=== PATIENT | male | born 1985 | race Caucasian/White ===

== ENCOUNTER 2022-07-21 20:33 | Inpatient (IN) | payer OTHER, SELFPAY ==
--- NOTE | ~2022-07-21 | XR_ITS ---
EXAMINATION: XR CHEST CLINICAL INFORMATION: Cough x1 week. Leukocytosis. COMPARISON: None available. TECHNIQUE: Frontal view of the chest was obtained. FINDINGS: No significant abnormality is noted involving the heart, lungs, mediastinum, bony thorax or soft tissues. XR/XR chest 1V IMPRESSION: Unremarkable chest examination.
[2022-07-21 21:10] VITALS: BP 151/90; PULSE 91; RESP 18; TEMP 36.9; O2SAT 96
--- NOTE | 2022-07-21 22:27 | PC.ADMIT ---
Christian Botello is a 36-year-old who is being seen by [facility] due to suicidal and homicidal ideation. He presented with paranoid thinking that his fianc? is ?out to get him?. He believes his fianc? is using the children against him, making tic emi videos to ?turn everyone against him? and is cheating on him with another man. During assessment he was unable to fully participate, perseverating on his belief that ?everyone is out to get him? and his finance is recording and posting videos from ?intimate activities?. He was unable to answer direct questions and required constant redirection, he continued to repeat the same story over again. He denies SI/HI, or auditory and visual hallucinations. He states having a safe place to discharge to, without being able to provide details. Per collateral with his mother he has access to firearms. On arrival to , patient signed in CV. Patient stated he was tired and wanted to rest. Patient given a snack and was shown around the unit and then went to his room. Nurse gave patient admission information and patient signed form. Patient allowed to sleep. Patient did report that he actively uses cocaine,fentynal, heroin, and marijuana and will most likely need medications to help with withdrawal on 07/22/22. last use was 0400 on 07/20/22. Patient denied active SI/HI or AH/VH. According to [facility] assessment, patient is paranoid and labile.
[2022-07-22] MEDS: hydrOXYzine HCL 25 MG TABLET PO (05:07)
[2022-07-22 08:40] VITALS: BP 160/96; PULSE 76; RESP 18; TEMP 36.7; O2SAT 96
[2022-07-22] MEDS: cloNIDine HCL 0.1 MG TABLET PO ×2 (09:12→14:26)
[2022-07-22 09:22] LABS: Alanine Aminotransferase 16 U/L (0-40); Albumin Level 4.3 g/dL (3.5-5.0); Alkaline Phosphatase 86 U/L (39-117); Anion Gap 12 (12-20); Aspartate Amino Transferase 14 U/L (5-37); Bilirubin Total 0.8 mg/dL (0.0-1.0); Blood Urea Nitrogen 8 mg/dL (9-16); Calcium 9.3 mg/dL (8.4-10.2); Carbon Dioxide 26 mmol/L (22-29); Chloride 106 mmol/L (96-108); Cholesterol 179 mg/dL; Estimated Glomerular Filt Rate > 60; Glucose Fasting 108 mg/dL (60-99); HDL Cholesterol 52 mg/dL; LDL Cholesterol Calculated 114 mg/dl; Potassium 4.2 mmol/L (3.3-5.1); Sodium 140 mmol/L (135-145); Triglycerides 68 mg/dL
--- NOTE | 2022-07-22 09:53 | HO.PSYADMNOT ---
HPI Date of Service: 07/22/22 Chief Complaint: F 31.9 F12.20 F11.20 Sources of Information: patient interviewed, chart reviewed and crisis/core team assessment reviewed HPI Subjective Notes: [place] Warning (given and shows understanding) and Conditional Voluntary Narrative: Mr. Botello is a 36 year-old male with a hx of cocaine, opioid use disorder and psychosis who was brought to [facility] ED on sect 12 a by police after father called 911 reporting pt presented as paranoid, accusing fiance of posting videos on tic emi about him and parents being involved as well. Pt made threats to shoot fiance and himself. In the ED, utox was positive for cocaine, oxycodone. On the unit, pt presents as cooperative. He reports fiance is making videos and random people on the streets or stores he goes to are talking about him. He reports that I know, sounds crazy, but is true! Pt reports long hx of substance use but opioid use for last 3 years ago. Pt reports some months of sobriety last year and earlier this year and even then he was preoccupied with ideas of fiance conspiring against him. He denies auditory or visual hallucinations. He reports fair sleep. He denies any intent to harm himself or his fiance and reports he was very upset and frustrated about what he believes she is doing to him. He still believes she is posting videos about him, which he states when he shows to others, they can't see they connection with him. He reports his daughter knew that he was not supposed to know. However, daughter is only 2 years old. Past Psychiatric History: Inpt: 2019 APTU OP: none Past medication trials: seroquel Medical Evaluation Reviewed: Yes Diagnostics Vital Signs (24Hr): Vital Signs - 24 hr 07/21/22 21:10 Temperature 98.4 F Pulse Rate 91 Respiratory Rate 18 Blood Pressure 151/90 H Pulse Oximetry 96 Oxygen Delivery Method Room Air Labs 07/22/22 08:42 Labs: Laboratory Results - last 48 hr 07/22/22 08:42 Sodium 140 Potassium 4.2 Chloride 106 Carbon Dioxide 26 Anion Gap 12 BUN 8 L Creatinine 0.85 Estim Creat Clear Calc TNP Estimated GFR > 60 Fasting Glucose 108 H Calcium 9.3 Total Bilirubin 0.8 AST 14 ALT 16 Alkaline Phosphatase 86 Total Protein 7.0 Albumin 4.3 Triglycerides 68 Cholesterol 179 LDL Cholesterol, Calc 114 HDL Cholesterol 52 Meds/Allergies Meds Home Medications Medication Instructions Recorded Confirmed Type No Known Home Meds 07/21/22 07/21/22 History Allergies Allergies Allergy/AdvReac Type Severity Reaction Status Date / Time No Known Allergies Allergy Verified 07/21/22 21:15 Mental Status Exam Mental Status Exam Narrative: Appearance: casually groomed, fair hygiene, in NAD behavior: cooperative Psychomotor: no agitation or retardation noted Speech: clear, normal rate/rhythm, spontaneous TP: mostly linear TC: delusions of fiance posting videos of him and random people talking about him, reports even in the hospital staff were involved and knew about fiance videos. Mood: upset Affect: congruent SI: denies HI: denies, but does state, something should happen to her for doing what she is doing Delusions: paranoid delusions Insight/judgment: poor x 2. Memory/cog: alert, oriented x 3. not situation. Assessment & Plan Assessment & Plan (1) Psychosis: Status: Acute Code(s): F29 - Unspecified psychosis not due to a substance or known physiological condition (2) Cocaine use disorder, moderate, dependence: Status: Acute Code(s): F14.20 - Cocaine dependence, uncomplicated (3) Opioid use disorder, moderate, dependence: Status: Acute Code(s): F11.20 - Opioid dependence, uncomplicated Plan Mr. Botello is a 36 year-old male with hx of substance use, psychosis who was brought on sect 12 by police after father called reporting pt threatening to shoot his fiance and then himself in context of paranoid delusions. On the unit, pt presented with paranoia stating that people, even strangers and others in the hospital were talking about him. His utox positive for oxycodone, cocaine, cannabis. Pt reports periods of sobriety earlier this year when he was experiencing paranoia. We discussed risks, benefits and alternative treatment options. Start COWS opioid withdrawal protocol. Start risperidone 1mg po BID for delusions. PLAN 1. admit to M3, CV, 15 minutes checks for safety 2. Opioid withdrawal- COWS protocol with methadone taper 3. start risperidone 1mg po BID 4. Obtain collateral information 5. aftercare planning Patient educated on: diagnosis and medication risk/benefits Reason for continued inpatient stay Substantial Risk for: harm to self, harm to others and inability to function Statement Statement: I have reviewed the history and physical and performed a pertinent examination on my patient. No changes have occurred unless specified. If the History and Physical was not performed prior to admission, the Hospitalist's service will be consulted for completing the admission physical. Time Spent With Patient Time: Total time managing care of this patient today ____ minutes.
--- NOTE | 2022-07-22 11:20 | HO.PM.IMCN ---
History of Present Illness Data of Consult Service Date: 07/22/22 Primary Care Provider: Unknown Physician HPI Reason for consult: Admission H&P Pt is a 36-year-old male with a PMH significant for opioid and cocaine use disorder who is admitted to M3 psychiatry unit for increasing depression and paranoia with SI towards self and HI towards fiancee. Medical consult for admission H&P. ?Patient complains an occasionally productive cough he has been experiencing for the past week to 10 days. Patient states his whole family had similar symptoms. Patient denies taking anything for his cough. Patient has long history of polysubstance abuse with last use of heroin and cocaine 2-3 days ago. Patient otherwise has no acute medical complaints. Denies fever, chills, nausea, vomiting, diarrhea, abdominal pain. No headache, changes in vision. Denies sore throat, difficulty breathing/SOB. Denies chest pains/pressure, palpitations. Review of Systems Review of Systems: Occasionally productive cough x7-10 days Denies shortness of breath, headache, fever, chills, myalgias No chest pain/pressure, palpitations Denies nausea, vomiting, diarrhea, abdominal pain Yes all other systems are reviewed and are negative PMFSH Social History Household Members: Significant Other and Children Housing: Apartment Do you presently have visiting nurse or other home services: No Patient Tobacco Use Status: Tobacco use Unknown Use of substances other than those prescribed or required for medical reasons: Yes Substance Use Type: Crack/Cocaine, Heroin and Marijuana Substance Use Frequency: Daily Last Used Substance: Just Prior to Admission Currently Displaying Signs/Symptoms of Drug Intoxication Withdrawal: No Any prior treatment program specific to substance use: Yes (1 year ago on [place]) Do you feel safe in your current relationship?: Yes Is there a partner from a previous relationship who is making you feel unsafe now?: No Are you made to feel afraid or neglected: No Spiritual Healthcare Practices: none reported Latter-Day Healthcare Practices: none reported Cultural Healthcare Practices: none reported Advance Directives: No Advance Directives Information Provided: No Do you have thoughts of harming others: Vague Do you have a plan to hurt others: No Plan Recently lost weight without trying: Unsure How much weight loss: Unsure Eating poorly because of decreased appetite: No Nutrition screen score: 4 Nutrition Risks: No Nutritional Risk Poor oral hygiene: No service: No Sexual orientation: Straight/Heterosexual Meds Allergies Allergy/AdvReac Type Severity Reaction Status Date / Time No Known Allergies Allergy Verified 07/21/22 21:15 Active Medications: Current Medications Acetaminophen (Acetaminophen 325 Mg Tablet) 650 mg PO Q6H PRN PRN Reason: Headache/Pain Mild Scale (1-3) Al Hydroxide/Mg Hydroxide (Magnesium Hydrox/Alum Hydrox 30 Ml Oral.Susp) 30 ml PO Q6H PRN PRN Reason: Heartburn/Nausea Clonidine HCl (Clonidine Hcl 0.1 Mg Tablet) 0.1 mg PO Q2H PRN; Protocol PRN Reason: SBP > 150; Sx of opioid withdrawal Last Admin: 07/22/22 09:12 Dose: 0.1 mg Dicyclomine HCl (Dicyclomine Hcl 10 Mg Capsule) 10 mg PO QIDACHS PRN PRN Reason: cramps Hydroxyzine HCl (Hydroxyzine Hcl 25 Mg Tablet) 25 mg PO Q6H PRN PRN Reason: Anxiety Last Admin: 07/22/22 05:07 Dose: 25 mg Ibuprofen (Ibuprofen 800 Mg Tablet) 800 mg PO Q6H PRN PRN Reason: aches Magnesium Hydroxide (Milk Of Magnesia 30 Ml Oral.Susp) 30 ml PO DAILY PRN PRN Reason: Constipation Trazodone HCl (Trazodone Hcl 50 Mg Tablet) 50 mg PO BEDTIME MRX1 PRN PRN Reason: Insomnia Home Medications Medication Instructions Recorded Confirmed Last Taken Type No Known Home Meds 07/21/22 07/21/22 Unknown History Physical Exam Vital Signs and Narrative: Vital Signs: Last Vital Signs Temp 98.1 F 07/22/22 08:40 Pulse 76 07/22/22 08:40 Resp 18 07/22/22 08:40 BP 160/96 H 07/22/22 08:40 Pulse Ox 96 07/22/22 08:40 O2 Del Method Room Air 07/22/22 08:40 Constitutional: Alert, in no acute distress. Mental Status: Oriented to person, place and time. Eyes: Pupils are equal, round, and reactive to light. Ear, Nose, and Throat: Oropharynx clear, mucous membranes moist. Ears and nose without deformities. Trachea midline. Respiratory: Clear to auscultation bilaterally. No wheezing, rales, or rhonchi. Occasional wet-sounding cogh noted. Cardiovascular: S1, S2 regular. No murmurs, rubs, or gallops. Gastrointestinal: Abdomen soft, non-tender, non-distended. Normal bowel sounds. Neurologic: Cranial nerves II-XII are grossly intact bilaterally. No focal neurological deficits. Moves all extremities spontaneously. Skin: No rashes or lesions noted. Musculoskeletal: No cyanosis or clubbing. Extremities: No edema. Psychiatric: Normal mood and affect. Results Labs 07/22/22 08:42 Labs: Laboratory Results - last 24 hr 07/22/22 08:42 Anion Gap 12 Estim Creat Clear Calc TNP Estimated GFR > 60 Fasting Glucose 108 H Calcium 9.3 Total Bilirubin 0.8 AST 14 ALT 16 Alkaline Phosphatase 86 Total Protein 7.0 Albumin 4.3 Triglycerides 68 Cholesterol 179 LDL Cholesterol, Calc 114 HDL Cholesterol 52 Assessment and Plan (1) Routine history and physical examination of adult: Status: Acute Plan Pt is a 36-year-old male with a PMH significant for opioid and cocaine use disorder who is admitted to psychiatry unit for increasing depression and paranoia with SI towards self and HI towards fiancee. Medical consult for admission H&P. Mood disorder Plan as per Psychiatry Cough Patient with cough x7-10 days, with known sick contacts with similar symptoms Lab work at [facility] showed leukocytosis of 15.1 Will repeat CBC Will get chest x-ray to rule out pneumonia Will check respiratory viral panel Benzonatate for cough Thank you for allowing us to participate in the care of this patient. Will continue to follow pending lab and x-ray results. Please let us know if there are any acute complaints or questions. Time Spent With Patient Time: Total time managing care of this patient today ____ minutes.
[2022-07-22 13:03] LABS: Hematocrit 43.1 % (42.0-52.0); Hemoglobin 14.7 g/dl (14.0-18.0); Mean Corpuscular HGB Conc 34.1 g/dl (31.0-36.0); Mean Platelet Volume 8.9 fL (9.4-12.4); Platelet Count 336 X10*3/uL (160-400); Red Cell Distribution Width 13.2 % (11.0-16.0); White Blood Count 11.5 X10*3/uL (4.8-10.8)
[2022-07-22 14:46] LABS: Adenovirus PCR Not Detected (Not Detect.); Bordetella parapertussis PCR Not Detected (Not Detect.); Bordetella pertussis PCR Not Detected (Not Detect.); Chlamydia pneumoniae PCR Not Detected (Not Detect.); Coronavirus 229E PCR Not Detected (Not Detect.); Coronavirus HKU1 PCR Not Detected (Not Detect.); Coronavirus NL63 PCR Not Detected (Not Detect.); Coronavirus OC43 PCR Not Detected (Not Detect.); Human metapneumovirus PCR Not Detected (Not Detect.); Influenza A PCR Not Detected (Not Detect.); Influenza B PCR Not Detected (Not Detect.); Mycoplasma pneumoniae PCR Not Detected (Not Detect.); Parainfluenza 1 PCR Not Detected (Not Detect.); Parainfluenza 2 PCR Not Detected (Not Detect.); Parainfluenza 3 PCR Not Detected (Not Detect.); Parainfluenza 4 PCR Not Detected (Not Detect.); RSV PCR Not Detected (Not Detect.); Rhino/Enterovirus PCR Not Detected (Not Detect.); SARS-CoV-2 PCR Not Detected (Not Detect.)
[2022-07-22] MEDS: risperiDONE 1 MG TABLET PO ×2 (16:49→21:24)
[2022-07-22] MEDS: methADONE HCl 20 MG/2 ML ORAL.CONC PO (16:49)
[2022-07-22 20:00] VITALS: BP 145/70; PULSE 90; RESP 16; TEMP 36.5; O2SAT 97
--- NOTE | 2022-07-22 22:53 | PC.NURSE ---
Christian is admitted to his first [facility] for safety, observation and stabilization, diagnosis MDD and substance use disorder. He is noted to be in bed during the shift, limited engagement in 1:1, he is isolating and withdrawn. Stated I feel better. med adherent with scheduled HS meds, independent with ADL', afebrile, no cough or congestion noted or reported to TW, CXRAY results pending Radiologist review, appears to be clear. Christian was noticed to be up once during the shift to use the phone. Denies current SI/HI/AVH. Ate some of his dinner, COWS due Q6 hrs WA. No behavior issues. POC as outlined, 15 min unit safety observation.
[2022-07-23] MEDS: traZODone HCL 50 MG TABLET PO ×2 (00:31→21:08)
[2022-07-23] MEDS: Cyclobenzaprine HCl 10 MG TABLET PO ×2 (00:31→21:08)
[2022-07-23 08:15] VITALS: BP 155/80; PULSE 60; RESP 18; TEMP 36.6; O2SAT 97
--- NOTE | 2022-07-23 09:23 | HO.PSYCHPN ---
Subjective Subjective Date of Service: 07/22/22 Reason For Visit: F 31.9 F12.20 F11.20 Subjective Notes: Conditional Voluntary Interim History: Pt reports having symptoms of opioid withdrawal including loose stools, muscle aches, sweating. He did received methadone 20mg po yesterday. He wants to continue taper. Today he received another methadone 20mg po, then will decrease by 5mg po daily. He continues to present with paranoid delusions. No SI/HI. Mostly in bed. Per nursing, pt slept through the night. Medication Compliance: Yes Review of Systems Review of Systems Occasionally productive cough x7-10 days Denies shortness of breath, headache, fever, chills, myalgias No chest pain/pressure, palpitations Denies nausea, vomiting, diarrhea, abdominal pain Yes all other systems are reviewed and are negative Mental Status Exam Mental Status Exam Narrative: Appearance: casually groomed, fair hygiene, in NAD behavior: cooperative Psychomotor: no agitation or retardation noted Speech: clear, normal rate/rhythm, spontaneous TP: mostly linear TC: delusions of fiance posting videos of him and random people talking about him, reports even in the hospital staff were involved and knew about fiance videos. Mood: upset Affect: congruent SI: denies HI: denies, but does state, something should happen to her for doing what she is doing Delusions: paranoid delusions Insight/judgment: poor x 2. Memory/cog: alert, oriented x 3. not situation. Diagnostics Vital Signs (24Hr): Vital Signs - 24 hr 07/22/22 20:00 07/23/22 08:15 Temperature 97.7 F 97.9 F Pulse Rate 90 60 Respiratory Rate 16 18 Blood Pressure 145/70 H 155/80 H Pulse Oximetry 97 97 Oxygen Delivery Method Room Air Room Air Labs 07/22/22 12:57 07/22/22 08:42 Labs: Laboratory Results - last 48 hr 07/22/22 07/22/22 07/22/22 08:42 12:45 12:57 WBC 11.5 H RBC 4.90 Hgb 14.7 Hct 43.1 MCV 88.0 MCH 30.0 MCHC 34.1 RDW 13.2 Plt Count 336 MPV 8.9 L Absolute Nucleated RBC 0.000 Nucleated RBC % (auto) 0.0 Sodium 140 Potassium 4.2 Chloride 106 Carbon Dioxide 26 Anion Gap 12 BUN 8 L Creatinine 0.85 Estim Creat Clear Calc TNP Estimated GFR > 60 Fasting Glucose 108 H Calcium 9.3 Total Bilirubin 0.8 AST 14 ALT 16 Alkaline Phosphatase 86 Total Protein 7.0 Albumin 4.3 Triglycerides 68 Cholesterol 179 LDL Cholesterol, Calc 114 HDL Cholesterol 52 Respiratory Panel Lopez See Note Adenovirus (Rapid PCR) Not Detected B.pert (TEM-PCR) Not Detected B.parapertussis DNA PCR Not Detected C. pneumoniae DNA (PCR) Not Detected Coronavirus OC43 (PCR) Not Detected Coronavirus HKU1 (PCR) Not Detected Coronavirus 229E (PCR) Not Detected Coronavirus NL63 (PCR) Not Detected Human Metapneumovir PCR Not Detected Influenza A (RT-PCR) Not Detected Influenza B (RT-PCR) Not Detected M. pneumoniae (PCR) Not Detected Parainfluenza 1 (PCR) Not Detected Parainfluenza 2 (PCR) Not Detected Parainfluenza 3 (PCR) Not Detected Parainfluenza 4 (PCR) Not Detected RSV (PCR) Not Detected Entero/Rhino (PCR) Not Detected SARS-CoV-2 RNA (RT-PCR) Not Detected Imaging Radiology Impressions: ITS Impressions Chest X-Ray 07/22/22 13:51 IMPRESSION: Unremarkable chest examination. Medications Medications Current Medications Acetaminophen (Acetaminophen 325 Mg Tablet) 650 mg PO Q6H PRN PRN Reason: Headache/Pain Mild Scale (1-3) Al Hydroxide/Mg Hydroxide (Magnesium Hydrox/Alum Hydrox 30 Ml Oral.Susp) 30 ml PO Q6H PRN PRN Reason: Heartburn/Nausea Benzonatate (Benzonatate 100 Mg Capsule) 100 mg PO TID PRN PRN Reason: Cough Clonidine HCl (Clonidine Hcl 0.1 Mg Tablet) 0.1 mg PO Q2H PRN; Protocol PRN Reason: SBP > 150; Sx of opioid withdrawal Last Admin: 07/22/22 14:26 Dose: 0.1 mg Cyclobenzaprine HCl (Cyclobenzaprine Hcl 10 Mg Tablet) 10 mg PO TID PRN PRN Reason: muscle spams Last Admin: 07/23/22 00:31 Dose: 10 mg Dicyclomine HCl (Dicyclomine Hcl 10 Mg Capsule) 10 mg PO QIDACHS PRN PRN Reason: cramps Hydroxyzine HCl (Hydroxyzine Hcl 25 Mg Tablet) 25 mg PO Q6H PRN PRN Reason: Anxiety Last Admin: 07/22/22 05:07 Dose: 25 mg Ibuprofen (Ibuprofen 800 Mg Tablet) 800 mg PO Q6H PRN PRN Reason: aches Magnesium Hydroxide (Milk Of Magnesia 30 Ml Oral.Susp) 30 ml PO DAILY PRN PRN Reason: Constipation Methadone HCl (Methadone Hcl 10 Mg Tablet) 20 mg PO ONCE ONE Stop: 07/23/22 09:22 Risperidone (Risperidone 1 Mg Tablet) 1 mg PO BID ARPITA Last Admin: 07/22/22 21:24 Dose: 1 mg Trazodone HCl (Trazodone Hcl 50 Mg Tablet) 50 mg PO BEDTIME PRN PRN Reason: Insomnia Last Admin: 07/23/22 00:31 Dose: 50 mg Allergies Allergies Allergy/AdvReac Type Severity Reaction Status Date / Time No Known Allergies Allergy Verified 07/21/22 21:15 Assessment & Plan Assessment & Plan (1) Psychosis: Status: Acute Code(s): F29 - Unspecified psychosis not due to a substance or known physiological condition (2) Cocaine use disorder, moderate, dependence: Status: Acute Code(s): F14.20 - Cocaine dependence, uncomplicated (3) Opioid use disorder, moderate, dependence: Status: Acute Code(s): F11.20 - Opioid dependence, uncomplicated Plan Pt is a 36-year-old male with a PMH significant for opioid and cocaine use disorder who is admitted to [facility] psychiatry unit for increasing depression and paranoia with SI towards self and HI towards fiancee. Medical consult for admission H&P. 07/23- continue methadone taper. on 07/24 methadone 15mg po daily, 07/25 methadone 10mg po daily, 07/26 methadone 5mg po daily, then stop. continue comfort medications. risperidone for paranoid delusions. Patient educated on: diagnosis, medication risk/benefits and substance abuse Informed Consent: understands Reason for continued inpatient stay Substantial Risk for: inability to function Time Spent With Patient Time: Total time managing care of this patient today ____ minutes.
[2022-07-23] MEDS: methADONE HCl 20 MG/2 ML ORAL.CONC PO (10:01)
[2022-07-23] MEDS: risperiDONE 1 MG TABLET PO ×2 (10:01→21:07)
--- NOTE | 2022-07-23 12:01 | PM.EVENT ---
Event Note Date of Service: 07/23/22 Event Note: F/U for pt with cough x1 week, leukocytosis. Labs showed continued mildly elevated WBC at 11.5. Respiratory panel all negative. Chest x-ray negative for acute cardiopulmonary process. Pneumonia unlikely. Continue conservative measures for cough. Please let us know if symptoms worsen or persist for another 5-7 days. Thank you for allowing us to participate in the care of this patient. Signing off at this time. Please let us know if there are any acute complaints or questions. Time Spent With Patient Time: Total time managing care of this patient today ____ minutes.
[2022-07-23 16:30] VITALS: BP 145/80; PULSE 68; TEMP 36.4
[2022-07-23 21:12] VITALS: BP 153/82; PULSE 62; RESP 18; TEMP 36.8; O2SAT 97
[2022-07-24 08:55] VITALS: BP 122/78; PULSE 110; RESP 18; TEMP 36.7; O2SAT 97
[2022-07-24] MEDS: risperiDONE 1 MG TABLET PO ×2 (09:01→21:54)
[2022-07-24] MEDS: methADONE HCl 20 MG/2 ML ORAL.CONC 15 MG PO (09:02)
[2022-07-24] MEDS: cloNIDine HCL 0.1 MG TABLET PO ×2 (09:05→20:12)
--- NOTE | 2022-07-24 10:15 | HO.PSYCHPN ---
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 and AA ondc , denied current risk to self or others Medication Compliance: Yes Side effects from medications: No Attending Groups: Yes Review of Systems Acute medical concerns: No Medical Review of Systems: unchanged Mental Status Exam Mental Status Exam Patient Appearance: Well Grooomed Patient Orientation: Person, Place, Time and Situation Level of Consciousness: Awake and Appropriate Patient Behavior: Appropriate Behavior Comments: nursing reports was in bed co wdrawl yesterday not today - up and joking tapering off methadone Mood Description: Calm Affect Description: Calm Patient Cognition Impaired: No Ability to Follow Directions: Good Speech Pattern: Clear Hallucinations: None Delusions: Not Present Thought Process: Intact Thought Content: positive for Intact and positive for Goal Oriented Depressive Symptoms: Difficulty Sleeping Diagnostics Vital Signs (24Hr): Vital Signs - 24 hr 07/23/22 16:30 07/23/22 21:12 Temperature 97.5 F 98.3 F Pulse Rate 68 62 Respiratory Rate 18 Blood Pressure 145/80 H 153/82 H Pulse Oximetry 97 Oxygen Delivery Method Room Air Labs 07/22/22 12:57 07/22/22 08:42 Labs: Laboratory Results - last 48 hr 07/22/22 07/22/22 12:45 12:57 WBC 11.5 H RBC 4.90 Hgb 14.7 Hct 43.1 MCV 88.0 MCH 30.0 MCHC 34.1 RDW 13.2 Plt Count 336 MPV 8.9 L Absolute Nucleated RBC 0.000 Nucleated RBC % (auto) 0.0 Respiratory Panel Loepz See Note Adenovirus (Rapid PCR) Not Detected B.pert (TEM-PCR) Not Detected B.parapertussis DNA PCR Not Detected C. pneumoniae DNA (PCR) Not Detected Coronavirus OC43 (PCR) Not Detected Coronavirus HKU1 (PCR) Not Detected Coronavirus 229E (PCR) Not Detected Coronavirus NL63 (PCR) Not Detected Human Metapneumovir PCR Not Detected Influenza A (RT-PCR) Not Detected Influenza B (RT-PCR) Not Detected M. pneumoniae (PCR) Not Detected Parainfluenza 1 (PCR) Not Detected Parainfluenza 2 (PCR) Not Detected Parainfluenza 3 (PCR) Not Detected Parainfluenza 4 (PCR) Not Detected RSV (PCR) Not Detected Entero/Rhino (PCR) Not Detected SARS-CoV-2 RNA (RT-PCR) Not Detected Imaging Radiology Impressions: ITS Impressions Chest X-Ray 07/22/22 13:51 IMPRESSION: Unremarkable chest examination. Medications Medications Current Medications Acetaminophen (Acetaminophen 325 Mg Tablet) 650 mg PO Q6H PRN PRN Reason: Headache/Pain Mild Scale (1-3) Al Hydroxide/Mg Hydroxide (Magnesium Hydrox/Alum Hydrox 30 Ml Oral.Susp) 30 ml PO Q6H PRN PRN Reason: Heartburn/Nausea Benzonatate (Benzonatate 100 Mg Capsule) 100 mg PO TID PRN PRN Reason: Cough Clonidine HCl (Clonidine Hcl 0.1 Mg Tablet) 0.1 mg PO Q2H PRN; Protocol PRN Reason: SBP > 150; Sx of opioid withdrawal Last Admin: 07/24/22 09:05 Dose: 0.1 mg Cyclobenzaprine HCl (Cyclobenzaprine Hcl 10 Mg Tablet) 10 mg PO TID PRN PRN Reason: muscle spams Last Admin: 07/23/22 21:08 Dose: 10 mg Dicyclomine HCl (Dicyclomine Hcl 10 Mg Capsule) 10 mg PO QIDACHS PRN PRN Reason: cramps Hydroxyzine HCl (Hydroxyzine Hcl 25 Mg Tablet) 25 mg PO Q6H PRN PRN Reason: Anxiety Last Admin: 07/22/22 05:07 Dose: 25 mg Ibuprofen (Ibuprofen 800 Mg Tablet) 800 mg PO Q6H PRN PRN Reason: aches Magnesium Hydroxide (Milk Of Magnesia 30 Ml Oral.Susp) 30 ml PO DAILY PRN PRN Reason: Constipation Methadone HCl (Methadone Hcl 20 Mg/2 Ml Oral.Conc) 10 mg PO DAILY ONE Stop: 07/25/22 08:01 Methadone HCl (Methadone Hcl 20 Mg/2 Ml Oral.Conc) 5 mg PO DAILY ONE Stop: 07/26/22 08:01 Risperidone (Risperidone 1 Mg Tablet) 1 mg PO BID ARPITA Last Admin: 07/24/22 09:01 Dose: 1 mg Trazodone HCl (Trazodone Hcl 50 Mg Tablet) 50 mg PO BEDTIME PRN PRN Reason: Insomnia Last Admin: 07/23/22 21:08 Dose: 50 mg Allergies Allergies Allergy/AdvReac Type Severity Reaction Status Date / Time No Known Allergies Allergy Verified 07/21/22 21:15 Assessment & Plan Assessment & Plan (1) Psychosis: Status: Acute Code(s): F29 - Unspecified psychosis not due to a substance or known physiological condition Assessment and Plan: on risperidone denying sys (2) Cocaine use disorder, moderate, dependence: Status: Acute Code(s): F14.20 - Cocaine dependence, uncomplicated (3) Opioid use disorder, moderate, dependence: Status: Acute Code(s): F11.20 - Opioid dependence, uncomplicated Assessment and Plan: denies sys of withdrawl today Plan Mr. Botello is a 36 year-old male with hx of substance use, psychosis who was brought on sect 12 by police after father called reporting pt threatening to shoot his fiance and then himself in context of paranoid delusions. On the unit, pt presented with paranoia stating that people, even strangers and others in the hospital were talking about him. His utox positive for oxycodone, cocaine, cannabis. Pt reports periods of sobriety earlier this year when he was experiencing paranoia. We discussed risks, benefits and alternative treatment options. Start COWS opioid withdrawal protocol. Start risperidone 1mg po BID for delusions. PLAN 1. admit to M3, CV, 15 minutes checks for safety 2. Opioid withdrawal- COWS protocol with methadone taper 3. start risperidone 1mg po BID 4. Obtain collateral information 5. aftercare planning Patient educated on: substance abuse Informed Consent: understands Reason for continued inpatient stay Substantial Risk for: rapid decompensation Time Spent With Patient Time: Total time managing care of this patient today ____ minutes.
[2022-07-24 18:00] VITALS: BP 166/96; PULSE 101; RESP 18; TEMP 36.2; O2SAT 98
[2022-07-24] MEDS: traZODone HCL 50 MG TABLET PO (21:54)
[2022-07-24] MEDS: Cyclobenzaprine HCl 10 MG TABLET PO (21:54)
[2022-07-25 09:00] VITALS: BP 138/88; PULSE 110; RESP 18; TEMP 36.8; O2SAT 99
[2022-07-25] MEDS: methADONE HCl 20 MG/2 ML ORAL.CONC 10 MG PO (09:05)
[2022-07-25] MEDS: risperiDONE 1 MG TABLET PO (09:05)
--- NOTE | 2022-07-25 10:24 | P.PNPSI_ITS ---
Subjective Subjective Date of Service: 07/25/22 Reason For Visit: F 31.9 F12.20 F11.20 Subjective Notes: 3 Day Healthcare Proxy: No Guardianship: No Medical Problems Affecting Mental Status: No Interim History: Patient feeling better wants to be discharged, retracts HI says didn't mean it loves gf /mother of child, -reports plan to stay with friends and get back to work - has to bill a $700 invoice for work already done- Plans to use conditioning coach and AA. Didn't know he was on risperidone which was started due to paranoia/mood laiblity around poly substance use- Medication Compliance: Yes (though doesn't seem to know he was on medications, and feels no different (other than sober)) Side effects from medications: No Attending Groups: Yes Review of Systems Acute medical concerns: No Medical Review of Systems: unchanged Review of Systems Review of Systems Yes all other systems are reviewed and are negative Mental Status Exam Mental Status Exam Patient Appearance: Well Grooomed and Appropriate Patient Orientation: Person, Place, Time and Situation Level of Consciousness: Awake Patient Behavior: Appropriate Mood Description: Calm Affect Description: Calm and Nervous Patient Cognition Impaired: No Ability to Follow Directions: Good Speech Pattern: Clear Hallucinations: None Delusions: Not Present Thought Process: Intact and Goal Oriented Thought Content: positive for Intact, positive for Suicidal Ideation (denying) and positive for Homicidal Ideation (denying) Depressive Symptoms: Increased Anxiety (thinks this is normal for going forward with some unkowns) Judgement: Fair Diagnostics Vital Signs (24Hr): Vital Signs - 24 hr 07/24/22 18:00 07/25/22 09:00 Temperature 97.2 F 98.2 F Pulse Rate 101 H 110 H Respiratory Rate 18 18 Blood Pressure 166/96 H 138/88 Pulse Oximetry 98 99 Oxygen Delivery Method Room Air Room Air Labs 07/22/22 12:57 07/22/22 08:42 Imaging Radiology Impressions: ITS Impressions Chest X-Ray 07/22/22 13:51 IMPRESSION: Unremarkable chest examination. Medications Medications Current Medications Acetaminophen (Acetaminophen 325 Mg Tablet) 650 mg PO Q6H PRN PRN Reason: Headache/Pain Mild Scale (1-3) Al Hydroxide/Mg Hydroxide (Magnesium Hydrox/Alum Hydrox 30 Ml Oral.Susp) 30 ml PO Q6H PRN PRN Reason: Heartburn/Nausea Benzonatate (Benzonatate 100 Mg Capsule) 100 mg PO TID PRN PRN Reason: Cough Clonidine HCl (Clonidine Hcl 0.1 Mg Tablet) 0.1 mg PO Q2H PRN; Protocol PRN Reason: SBP > 150; Sx of opioid withdrawal Last Admin: 07/24/22 20:12 Dose: 0.1 mg Cyclobenzaprine HCl (Cyclobenzaprine Hcl 10 Mg Tablet) 10 mg PO TID PRN PRN Reason: muscle spams Last Admin: 07/24/22 21:54 Dose: 10 mg Dicyclomine HCl (Dicyclomine Hcl 10 Mg Capsule) 10 mg PO QIDACHS PRN PRN Reason: cramps Hydroxyzine HCl (Hydroxyzine Hcl 25 Mg Tablet) 25 mg PO Q6H PRN PRN Reason: Anxiety Last Admin: 07/22/22 05:07 Dose: 25 mg Ibuprofen (Ibuprofen 800 Mg Tablet) 800 mg PO Q6H PRN PRN Reason: aches Magnesium Hydroxide (Milk Of Magnesia 30 Ml Oral.Susp) 30 ml PO DAILY PRN PRN Reason: Constipation Methadone HCl (Methadone Hcl 20 Mg/2 Ml Oral.Conc) 5 mg PO DAILY ONE Stop: 07/26/22 08:01 Risperidone (Risperidone 1 Mg Tablet) 1 mg PO BID ARPITA Last Admin: 07/25/22 09:05 Dose: 1 mg Trazodone HCl (Trazodone Hcl 50 Mg Tablet) 50 mg PO BEDTIME PRN PRN Reason: Insomnia Last Admin: 07/24/22 21:54 Dose: 50 mg Allergies Allergies Allergy/AdvReac Type Severity Reaction Status Date / Time No Known Allergies Allergy Verified 07/21/22 21:15 Assessment & Plan Assessment & Plan (1) Psychosis: Status: Acute Code(s): F29 - Unspecified psychosis not due to a substance or known physiological condition Assessment and Plan: on risperidone denying sys- doesn't know why he is on this though drug use had seemed to lead to concern someone was in his house (2) Cocaine use disorder, moderate, dependence: Status: Acute Code(s): F14.20 - Cocaine dependence, uncomplicated (3) Opioid use disorder, moderate, dependence: Status: Acute Code(s): F11.20 - Opioid dependence, uncomplicated Assessment and Plan: denies sys of withdrawl today Plan Mr. Botello is a 36 year-old male with hx of substance use, psychosis who was brought on sect 12 by police after father called reporting pt threatening to shoot his fiance and then himself in context of paranoid delusions. On the unit, pt presented with paranoia stating that people, even strangers and others in the hospital were talking about him. His utox positive for oxycodone, cocaine, cannabis. Pt reports periods of sobriety earlier this year when he was experiencing paranoia. We discussed risks, benefits and alternative treatment options. Start COWS opioid withdrawal protocol. Start risperidone 1mg po BID for delusions. PLAN 1. admit to M3, CV, 15 minutes checks for safety 2. Opioid withdrawal- COWS protocol with methadone taper 3. start risperidone 1mg po BID 4. Obtain collateral information 5. aftercare planning Patient educated on: medication risk/benefits and substance abuse Informed Consent: further education needed Reason for continued inpatient stay Substantial Risk for: rapid decompensation Time Spent With Patient Time: Total time managing care of this patient today ____ minutes.
[2022-07-25] MEDS: Nicotine Polacrilex 2 MG GUM BUCCAL ×2 (15:38→18:33)
[2022-07-25 20:15] VITALS: BP 131/87; PULSE 102; RESP 18; TEMP 36.3; O2SAT 97
[2022-07-25] MEDS: traZODone HCL 50 MG TABLET PO (23:16)
--- NOTE | 2022-07-26 03:55 | PC.NURSE ---
Christian is noted to be pleasant and cooperative upon approach. he denies suicidal/homicidal ideation, auditory/visual hallucinations, depression and anxiety. he was noted to be spending time in the TV room he was not noted to be interacting with his peers. he declined his HS Risperdal stating I want to see how I'll feel without it. If I go crazy then you can say 'I told ya so' in the morning . no behavioral concerns noted monitor for safety, continue Plan of Care
[2022-07-26 08:00] VITALS: BP 141/84; PULSE 93; RESP 18; TEMP 36.7; O2SAT 100
[2022-07-26] MEDS: methADONE HCl 20 MG/2 ML ORAL.CONC 5 MG PO (09:08)
[2022-07-26] MEDS: risperiDONE 1 MG TABLET PO ×2 (09:11→20:59)
[2022-07-26] MEDS: Loperamide HCl 2 MG CAPSULE PO (09:19)
--- NOTE | 2022-07-26 10:48 | HO.PSYCHPN ---
Subjective Subjective Date of Service: 07/26/22 Reason For Visit: F 31.9 F12.20 F11.20 Subjective Notes: Conditional Voluntary and 3 Day Interim History: Pt reports feeling better in that he states feeling calmer. No withdrawal symptoms. He continues to report paranoia about fiance posting things on [employer] and family and other random people knowing about it but with less intensity. Pt reports risperidone, does make him feel calmer but states I don't want to be labeled as a psych patient. Pt reports he agrees to take risperidone for 2 weeks after discharge but does not want to follow up with psychiatrist. Pt reports he believes harassment will stop if he goes somewhere else. He does have some insight that it sounds crazy that random people even in hospital are talking about him but still states he does not think medication will help him further. He agreed to referral to parent coach and denies any other referrals. He declines referral for MAT for opioid use disorder. Medication Compliance: Yes Side effects from medications: No Attending Groups: Yes Diagnostics Vital Signs (24Hr): Vital Signs - 24 hr 07/25/22 20:15 Temperature 97.4 F Pulse Rate 102 H Respiratory Rate 18 Blood Pressure 131/87 Pulse Oximetry 97 Oxygen Delivery Method Room Air Labs 07/22/22 12:57 07/22/22 08:42 Imaging Radiology Impressions: ITS Impressions Chest X-Ray 07/22/22 13:51 IMPRESSION: Unremarkable chest examination. Medications Medications Current Medications Acetaminophen (Acetaminophen 325 Mg Tablet) 650 mg PO Q6H PRN PRN Reason: Headache/Pain Mild Scale (1-3) Al Hydroxide/Mg Hydroxide (Magnesium Hydrox/Alum Hydrox 30 Ml Oral.Susp) 30 ml PO Q6H PRN PRN Reason: Heartburn/Nausea Benzonatate (Benzonatate 100 Mg Capsule) 100 mg PO TID PRN PRN Reason: Cough Clonidine HCl (Clonidine Hcl 0.1 Mg Tablet) 0.1 mg PO Q2H PRN; Protocol PRN Reason: SBP > 150; Sx of opioid withdrawal Last Admin: 07/24/22 20:12 Dose: 0.1 mg Cyclobenzaprine HCl (Cyclobenzaprine Hcl 10 Mg Tablet) 10 mg PO TID PRN PRN Reason: muscle spams Last Admin: 07/24/22 21:54 Dose: 10 mg Dicyclomine HCl (Dicyclomine Hcl 10 Mg Capsule) 10 mg PO QIDACHS PRN PRN Reason: cramps Hydroxyzine HCl (Hydroxyzine Hcl 25 Mg Tablet) 25 mg PO Q6H PRN PRN Reason: Anxiety Last Admin: 07/22/22 05:07 Dose: 25 mg Ibuprofen (Ibuprofen 800 Mg Tablet) 800 mg PO Q6H PRN PRN Reason: aches Loperamide HCl (Loperamide Hcl 2 Mg Capsule) 2 mg PO Q4H PRN PRN Reason: loose stools Last Admin: 07/26/22 09:19 Dose: 2 mg Magnesium Hydroxide (Milk Of Magnesia 30 Ml Oral.Susp) 30 ml PO DAILY PRN PRN Reason: Constipation Nicotine Polacrilex (Nicotine Polacrilex 2 Mg Gum) 2 mg BUCCAL Q1H PRN PRN Reason: Nicotine Cravings Last Admin: 07/25/22 18:33 Dose: 2 mg Risperidone (Risperidone 1 Mg Tablet) 1 mg PO BID ARPITA Last Admin: 07/26/22 09:11 Dose: 1 mg Trazodone HCl (Trazodone Hcl 50 Mg Tablet) 50 mg PO BEDTIME PRN PRN Reason: Insomnia Last Admin: 07/25/22 23:16 Dose: 50 mg Allergies Allergies Allergy/AdvReac Type Severity Reaction Status Date / Time No Known Allergies Allergy Verified 07/21/22 21:15 Assessment & Plan Assessment & Plan (1) Psychosis: Status: Acute Code(s): F29 - Unspecified psychosis not due to a substance or known physiological condition (2) Cocaine use disorder, moderate, dependence: Status: Acute Code(s): F14.20 - Cocaine dependence, uncomplicated (3) Opioid use disorder, moderate, dependence: Status: Acute Code(s): F11.20 - Opioid dependence, uncomplicated Assessment and Plan: denies sys of withdrawl today Plan Mr. Botello is a 36 year-old male with hx of substance use, psychosis who was brought on sect 12 by police after father called reporting pt threatening to shoot his fiance and then himself in context of paranoid delusions. On the unit, pt presented with paranoia stating that people, even strangers and others in the hospital were talking about him. His utox positive for oxycodone, cocaine, cannabis. Pt reports periods of sobriety earlier this year when he was experiencing paranoia. We discussed risks, benefits and alternative treatment options. Start COWS opioid withdrawal protocol. Start risperidone 1mg po BID for delusions. PLAN 1. admit to M3, CV, 15 minutes checks for safety 2. Opioid withdrawal- COWS protocol with methadone taper 3. start risperidone 1mg po BID 4. Obtain collateral information 5. aftercare planning 07/26- pt less paranoid delusions but continues to have them. He is calmer, no SI/HI. Reason for continued inpatient stay Substantial Risk for: stable for discharge Time Spent With Patient Time: Total time managing care of this patient today ____ minutes.
[2022-07-26] MEDS: Nicotine Polacrilex 2 MG GUM BUCCAL ×2 (12:14→19:41)
[2022-07-26] MEDS: traZODone HCL 50 MG TABLET PO (20:59)
[2022-07-26 21:01] VITALS: BP 138/100; PULSE 113; RESP 16; TEMP 36.3
--- NOTE | 2022-07-26 21:17 | MHC.RECOVSUP ---
? Reason for consult: recovery Support o Current location: 306-2? o Identified substance use concern: TREY - Support ? Plan: o Follow up tomorrow ? ? Additional information:?Patient was sleeping. onsite health coach will follow up tomorrow.
[2022-07-27 08:00] VITALS: BP 145/100; PULSE 105; RESP 18; TEMP 36.6; O2SAT 100
[2022-07-27] MEDS: risperiDONE 1 MG TABLET PO (08:33)
[2022-07-27] MEDS: cloNIDine HCL 0.1 MG TABLET PO (08:33)
--- NOTE | 2022-07-27 08:45 | PM.PSYDC ---
DS: Providers Provider Date of Service: 07/27/22 Date of admission: 07/21/22 20:33 Primary care physician: Unknown Physician Consults: 07/21/22 21:15 Consult to Hospitalist Routine Comment: Consulting Provider: Hospitalist Reason For Exam: Direct admission DS: Diagnosis Discharge Diagnosis (1) Psychosis: Status: Acute (2) Cocaine use disorder, moderate, dependence: Status: Acute (3) Opioid use disorder, moderate, dependence: Status: Acute DS: Medications Discharge Medications Home Medications: Previous Rx's Medication Instructions Recorded clonidine HCl 0.1 mg tablet 0.1 mg PO DAILY PRN anxiety #30 07/27/22 tabs risperidone 1 mg tablet 1 mg PO BID #60 tabs 07/27/22 trazodone 50 mg tablet 50 mg PO BEDTIME PRN Insomnia #30 07/27/22 tabs Mental Status Exam Mental Status Exam Narrative: Appearance: casually groomed, fair hygiene, in NAD behavior: cooperative Psychomotor: no agitation or retardation noted Speech: clear, normal rate/rhythm, spontaneous TP: mostly linear TC: delusions of fiance posting videos of him and random people talking about him, reports even in the hospital staff were involved and knew about fiance videos. Mood: upset Affect: congruent SI: denies HI: denies, but does state, something should happen to her for doing what she is doing Delusions: paranoid delusions Insight/judgment: poor x 2. Memory/cog: alert, oriented x 3. not situation. Data Data Completed and Pending Completed studies during hospitalization [Text1]: 07/22/22 07/22/22 07/22/22 08:42 12:45 12:57 WBC 11.5 H RBC 4.90 Hgb 14.7 Hct 43.1 MCV 88.0 MCH 30.0 MCHC 34.1 RDW 13.2 Plt Count 336 MPV 8.9 L Absolute Nucleated RBC 0.000 Nucleated RBC % (auto) 0.0 Sodium 140 Potassium 4.2 Chloride 106 Carbon Dioxide 26 Anion Gap 12 BUN 8 L Creatinine 0.85 Estim Creat Clear Calc TNP Estimated GFR > 60 Fasting Glucose 108 H Calcium 9.3 Total Bilirubin 0.8 AST 14 ALT 16 Alkaline Phosphatase 86 Total Protein 7.0 Albumin 4.3 Triglycerides 68 Cholesterol 179 LDL Cholesterol, Calc 114 HDL Cholesterol 52 Respiratory Panel Lopez See Note Adenovirus (Rapid PCR) Not Detected B.pert (TEM-PCR) Not Detected B.parapertussis DNA PCR Not Detected C. pneumoniae DNA (PCR) Not Detected Coronavirus OC43 (PCR) Not Detected Coronavirus HKU1 (PCR) Not Detected Coronavirus 229E (PCR) Not Detected Coronavirus NL63 (PCR) Not Detected Human Metapneumovir PCR Not Detected Influenza A (RT-PCR) Not Detected Influenza B (RT-PCR) Not Detected M. pneumoniae (PCR) Not Detected Parainfluenza 1 (PCR) Not Detected Parainfluenza 2 (PCR) Not Detected Parainfluenza 3 (PCR) Not Detected Parainfluenza 4 (PCR) Not Detected RSV (PCR) Not Detected Entero/Rhino (PCR) Not Detected SARS-CoV-2 RNA (RT-PCR) Not Detected Imaging Diagnostic Imaging Impressions Chest X-Ray 07/22/22 13:51 IMPRESSION: Unremarkable chest examination. DS: Summary Hospital Course Hospital Course: HPI: Mr. Botello is a 36 year-old male with a hx of cocaine, opioid use disorder and psychosis who was brought to [facility] ED on sect 12 a by police after father called 911 reporting pt presented as paranoid, accusing fiance of posting videos on t[employer] about him and parents being involved as well. Pt made threats to shoot fiance and himself. In the ED, utox was positive for cocaine, oxycodone. On the unit, pt presents as cooperative. He reports fiance is making videos and random people on the streets or stores he goes to are talking about him. He reports that I know, sounds crazy, but is true! Pt reports long hx of substance use but opioid use for last 3 years ago. Pt reports some months of sobriety last year and earlier this year and even then he was preoccupied with ideas of fiance conspiring against him. He denies auditory or visual hallucinations. He reports fair sleep. He denies any intent to harm himself or his fiance and reports he was very upset and frustrated about what he believes she is doing to him. He still believes she is posting videos about him, which he states when he shows to others, they can't see they connection with him. He reports his daughter knew that he was not supposed to know. However, daughter is only 2 years old. Past Psychiatric History: Inpt: 2019 APTU OP: none Past medication trials: seroquel Medical Evaluation Reviewed: Yes HOSPITAL COURSE On the unit, pt was admitted on a CV and placed on 15 minutes checks for safety. Pt presented as paranoid, thinking theron was posting videos of him and random people even hospital staff were talking about him. We discussed risks, benefits and alternative treatment options, pt was started on risperidone for psychosis and delusions. Pt was also started on COWS protocol for opioid withdrawal with methadone taper, which he tolerated well. His affect gradually presented as calmer, less paranoid ideas although they continue to be there. He reported that he still thinks theron was posting messages about him and having people talk about him. He adamantly denied suicidal or homicidal ideation. He declined referrals for residential substance use treatment. He declined referrals for psychiatric services stating he does not want to be labeled as a psychiatric patient. He did notice that risperidone help him feel calmer and he did agree to take medication while in the hospital. He states he will take it for some weeks to continue feel calmer but does not want to continue further psychiatric treatment. I suspect his paranoia and psychosis is beyond substance induced brief psychotic process. Pt was given narcan on discharge. There were no incidences of disruptive behaviors nor need for restraints. Time spent discussing smoking cessation with patient: 3 to 10 minutes Status at Discharge Cognitive/behavioral status at discharge: Pt less paranoid, residual paranoia present but pt in much more behavioral control. No agitation or aggression towards self or others noted. No SI/HI. Pt sleeping and eating well. Narcan given on discharged. Functional status at discharge: independent ambulation Overall status at discharge: patient is progressing back to baseline Time Spent with Patient Time attestation: Total time managing care of this patient today __30__ minutes. Time spent: Greater than 30 minutes Discharge Plan Discharge Anticipated Discharge Date/Time: 07/27/22 08:38 Patient Disposition: Home, Self-Care Discharge Diagnosis: Psychosis NOS, cocaine use disorder opioid use disorder Referrals: Physician,Unknown J [Primary Care Provider] - 1 Week Discharge Medications: New clonidine HCl 0.1 mg Tablet 0.1 mg PO DAILY PRN (Reason: anxiety) Qty: 30 0RF Protocol: Hold for SBP< HOLD for SBP < : 90 trazodone 50 mg Tablet 50 mg PO BEDTIME PRN (Reason: Insomnia) Qty: 30 0RF risperidone 1 mg Tablet 1 mg PO BID Qty: 60 0RF Discharge Orders: Discharge Order (Routine); Ordered 07/27/22 Ordered By: Keely Mccallum Diet: Regular diet Activity on Discharge: As tolerated Stand Alone Forms: Patient Portal Discharge page Care Plan Goals: 1. maintain mood 2. No SI/HI 3. less psychosis/paranoid 4. Harm reduction- narcan given on discharged Health Concerns: Follow up with PCP Plan of Treatment: 1. Take medications as prescribed 2. Go to nearest ED or call 911 in event of emergency Assessment: Pt with brighter affect, non labile. Less paranoia. No SI/HI. No signs of aggression towards self or others. Pt sleeping and eating well. Harm reduction- given narcan on discharge
--- NOTE | 2022-07-27 10:30 | PC.NURSE ---
0945 Pt discharged to home . Pt verbalized understanding of instructions and medications. Pt denies SI/HI/AH/VH at this time. He reports step father is good support for him. Step Father to pick patient up at 0945.
== END 2022-07-27 09:45 | disposition home or self-care (01) | DRG 751 ==
LOC: HO.EDOVER 20:49 → HO.PADLT16 20:56
PROVIDERS: Psychiatry & Neurology Psychiatry; Student in an Organized Health Care Education/Training Program; Admitting Provider Psychiatry & Neurology Psychiatry; Visit Provider Social Worker
DX: F29 Unspecified psychosis not due to a substance or known physiological condition (principal); F11.20 Opioid dependence, uncomplicated; F14.20 Cocaine dependence, uncomplicated
CPT/HCPCS: 36415; 71045; 80053; 80061; 85027; 87633